=== PATIENT | female | born 1985 | race Caucasian/White ===

== ENCOUNTER → 2017-03-11 | Outpatient (CLI) | payer OTHER | LOC: RAD 13:40 | DX: M79.1 Myalgia (principal); M41.9 Scoliosis, unspecified | CPT/HCPCS: 72100 ==

== ENCOUNTER → 2020-12-17 | Outpatient (CLI) | payer BC, OTHER | LOC: LAB 18:43 | DX: Z32.00 Encounter for pregnancy test, result unknown (principal) | CPT/HCPCS: 84702 ==

== ENCOUNTER 2021-02-19 12:35 | Emergency (ER) | payer BC, OTHER ==
[2021-02-19 16:27] LABS: HEMOGLOBIN 12.4 gm/dl (12.3-15.3); RED BLOOD COUNT 4.51 M/UL (4.00-5.10); WHITE BLOOD COUNT 11.3 K/UL (4.5-11.0)
[2021-02-19 17:37] LABS: BUN/CREATININE RATIO 7 (0-10)
== END 2021-02-19 19:20 | disposition home or self-care (01) ==
LOC: ER1 12:35
PROVIDERS: Family Medicine
DX: O99.891 Other specified diseases and conditions complicating pregnancy (principal); R06.02 Shortness of breath; R42 Dizziness and giddiness; O99.281 Endocrine, nutritional and metabolic diseases complicating pregnancy, first trimester; E03.9 Hypothyroidism, unspecified; Z86.718 Personal history of other venous thrombosis and embolism; Z3A.13 13 weeks gestation of pregnancy
CPT/HCPCS: 80053; 81001; 85025; 85379; 93970; 99285

== ENCOUNTER → 2021-04-03 | Outpatient (CLI) | payer BC, OTHER ==
[~2021-04-03] VITALS: Ht 165.1 cm; Wt 80.7 kg
== END ==
LOC: OPSV 11:09
DX: O99.282 Endocrine, nutritional and metabolic diseases complicating pregnancy, second trimester (principal); E86.0 Dehydration; E28.2 Polycystic ovarian syndrome; E03.9 Hypothyroidism, unspecified; O21.0 Mild hyperemesis gravidarum; Z3A.20 20 weeks gestation of pregnancy; Z91.018 Allergy to other foods; Z79.899 Other long term (current) drug therapy
CPT/HCPCS: 96360; 96361; 96365; J2550

== ENCOUNTER → 2021-11-29 | Outpatient (CLI) | payer BC, OTHER | LOC: KOH-I 14:03 | DX: R60.9 Edema, unspecified (principal) | CPT/HCPCS: 71046 ==

== ENCOUNTER 2021-12-06 03:25 | Emergency (ER) | payer BC, OTHER ==
[2021-12-06 04:39] LABS: HEMOGLOBIN 11.5 gm/dl (12.3-15.3); RED BLOOD COUNT 4.3 M/UL (4.00-5.10); WHITE BLOOD COUNT 9.2 K/UL (4.5-11.0)
[2021-12-06 04:56] LABS: BUN/CREATININE RATIO 14 (0-10)
[2021-12-06] MEDS ORDERED: FLOMAX0.4 MG PO (06:31)
[2021-12-06] MEDS ORDERED: HYDROCODON-ACE1 EAC4 PO (06:31)
[2021-12-06] MEDS ORDERED: ZOFRAN ODT 4 MG4 MG SL (06:31)
== END 2021-12-06 06:43 | disposition home or self-care (01) ==
LOC: ER1 03:25
PROVIDERS: Student in an Organized Health Care Education/Training Program
DX: N13.2 Hydronephrosis with renal and ureteral calculous obstruction (principal)
CPT/HCPCS: 80048; 81001; 84703; 85025; 96374; 96375; 99284; J1885; J2405; J2550

== ENCOUNTER → 2022-01-01 | Outpatient (CLI) | payer BC, OTHER ==
[~2022-01-01] MED LIST: FLOMAX0.4 MG PO; HYDROCODON-ACE1 EAC4 PO; ZOFRAN ODT 4 MG4 MG SL
== END ==
LOC: HEART 5 12:44
DX: R60.0 Localized edema (principal)
CPT/HCPCS: 93970

== ENCOUNTER → 2022-01-28 | Outpatient (CLI) | payer BC, OTHER | LOC: HEART 5 13:04 | DX: R06.00 Dyspnea, unspecified (principal) | CPT/HCPCS: 94010; 94729 ==

== ENCOUNTER → 2022-02-06 | Outpatient (CLI) | payer BC, OTHER | LOC: HEART 5 01-24 11:30 | DX: R94.31 Abnormal electrocardiogram [ECG] [EKG] (principal); I10 Essential (primary) hypertension; R60.9 Edema, unspecified; R06.02 Shortness of breath | CPT/HCPCS: 93306 ==

== ENCOUNTER → 2022-05-21 | Outpatient (CLI) | payer BC, OTHER | LOC: EXRD 12:51 | DX: R10.9 Unspecified abdominal pain (principal) | CPT/HCPCS: 76775 ==